=== PATIENT | male | born 1945 | race Caucasian/White ===

== ENCOUNTER → 2017-06-09 08:00 | Outpatient (CLI) | payer MEDICARE ==
[~2017-06-09] VITALS: Ht 180.3 cm; Wt 88.2 kg
--- NOTE | ~2017-06-09 | HEMODYNAMI ---
PATIENT:AKIL HYDE MEDICAL RECORD: [id number] : 41 LOCATION:DBreanaCAT ADMISSION DATE: 06/09/17 Generatedon:06/09/201710:56 Patient name: AKIL HYDE Patient #: [id number] SSN: D OB: 1945 Date of study: 06/09/2017 Page: Of Hemodynamic Procedure Report Patient Data Patient Demographics Procedure consent was obtained First Name: AKIL Gender: Male Last Name: MARY ELLEN : 1945 Middle Initial: TRINA Age: 72 year(s) Patient #: [id number] Race: Unknown Additional ID: [id number] Contact details [address]: [address] [place] [address] State: [place] City: [place] Zip code: [address] Past Medical History Allergies: No known allergies Admission Admission Data Admission Date: 06/09/2017 Admission Time: 8:00 Admit Source: Other Height (in.): 71 BSA: 2.08 (m2) Height (cm.): 180.34 BMI: 27.11 (kg/m2) Weight (lbs.): 194.4 Weight (kg.): 88.18 Lab Results Lab Result Date: 06/09/2017 Lab Result Time: 8:45 Biochemistry Name Units Result Min Max BUN mg/dl 20 --(----)*- 7 18 Creatinine mg/dl 1.4 --(----)*- 0.6 1.3 CBC Name Units Result Min Max Hematocrit % 34.8 *-(----)-- 42 54 Hemoglobin g/dl 10.9 *-(----)-- 13.5 17.5 Procedure Procedure Types Cath Procedure Diagnostic Procedure [facility] w/Coronaries PCI Procedure Coronary Stent Coronary Stent Initial Miscellaneous Procedures Moderate Sedation up to 30 minutes Procedure Description Procedure Date Procedure Date: 06/09/2017 Procedure Start Time: 10:40 Procedure End Time: 10:56 Procedure Staff Name Function Laci Lambert MD Performing Physician Annika More RT Monitor Yasir Roberts RT Scrub Judy Oviedo RN Nurse Procedure Data Cath Procedure Fluoroscopy Diagnostic fluoroscopy Total fluoroscopy Time: 3.6 time: 3.6 min min Diagnostic fluoroscopy Total fluoroscopy dose: 245 dose: 245 mGy mGy Contrast Material Contrast Material Type Amount (ml) Isovue 300 77 Entry Location Entry Primary Successful Side Size Upsize Upsize Entry Closure Wright ccessful Closure Location (Fr) 1 (Fr) 2 (Fr) Remarks Device Remarks Radial Right 6 Fr Mechanical artery Short Compression Estimated blood loss: 10 ml Diagnostic catheters Device Type Used For End Catheter Placement Diagnostic Terumo 5Fr LV Angiography [place] 110cm catheter Diagnostic Terumo 5Fr Right Coronary [place] 110cm catheter Angiography Procedure Complications No complications Procedure Medications Medication Administration Route Dosage Oxygen NC 2 l/min Lidocaine 2% added to field 20 Heparin Flush Bag added to field 2 bags (1000units/500ml NS) 0.9% NaCl I.V. 100 ml/hr Versed I.V. 1 mg Fentanyl I.V. 50 mcg Radial Cocktail I.A. 1 syringe (Verapomil 2mg/Nitro 400mcg/Heparin 1500units) Versed I.V. 1 mg Fentanyl I.V. 50 mcg Heparin Bolus I.V. 4000 units Versed I.V. 1 mg Fentanyl I.V. 50 mcg Hemodynamics Rest BSA: 2.08 (m2) HGB: 10.9 (g/dl) O2 Consumption: Estimated: 231.96 (ml/min) O2 Co nsumption indexed: Estimated:111.52 (ml/min/m) Heart Rate: 61 (bpm) Snapshots Pre Cath Intra NCS Post Cath Vital Signs Time Heart Resp SPO2 etCO2 NIBP (mmHg) Rhythm Pain Sedation Rate (ipm) (%) (mmHg) Status Level (bpm) 10:15:07 67 16 95 0 142/85(121) NSR 0 (11) 10(A) , No pain 10:19:23 59 16 94 31.4 138/72(105) NSR 0 (11) 10(A) , No pain 10:23:39 63 15 96 29.2 137/78(93) NSR 0 (11) 10(A) , No pain 10:27:56 60 15 94 32.9 130/79(90) NSR 0 (11) 10(A) , No pain 10:32:10 65 16 94 34.1 129/71(96) NSR 0 (11) 10(A) , No pain 10:36:20 66 15 94 12.7 127/74(98) NSR 0 (11) 10(A) , No pain 10:40:27 68 15 96 32.2 121/77(92) NSR 0 (11) 9(A) , No pain 10:44:37 73 16 94 11.9 104/64(82) NSR 0 (11) 9(A) , No pain 10:48:45 71 15 94 12.7 113/67(83) NSR 0 (11) 9(A) , No pain 10:52:57 71 17 94 21.7 116/63(93) NSR 0 (11) 10(A) , No pain Medications Time Medication Route Dose Verified Delivered Reason Notes Effectiveness by by 10:28:08 Oxygen NC 2 l/min Laci Buffie used for Fausto Oviedo RN procedure 10:28:15 Lidocaine 2% added 20ml Laci Aguero for local to vial Fausto Lambert MD anesthetic field 10:28:21 Heparin Flush added 2 bags Laci Aguero used for Bag to Fausto Lambert MD procedure (1000units/500ml field NS) 10:28:29 0.9% NaCl I.V. 100 Laci Kim Per ml/hr Fausto Oviedo RN physician 10:34:18 Versed I.V. 1 mg Laci Kim for sedation Fausto Oviedo RN 10:34:24 Fentanyl I.V. 50 mcg Laci Kim for sedation Fausto Oviedo RN 10:41:07 Radial Cocktail I.A. 1 Laci Aguero for (Verapomil syringe Fausto Lambert MD vasodilation 2mg/Nitro 400mcg/Heparin 1500units) 10:41:25 Versed I.V. 1 mg Laci Aguero for sedation Fausto Lambert MD 10:41:29 Fentanyl I.V. 50 mcg Laci Aguero for sedation Fausto Lambert MD 10:45:52 Heparin Bolus I.V. 4000 Laci Kim for sedation verifie d units Fausto Oviedo RN with dr lambert 10:50:00 Versed I.V. 1 mg Laci Kim for sedation Tauth MD Oviedo RN 10:50:04 Fentanyl I.V. 50 mcg Laci Kim for sedation Fausto Oviedo RN Procedure Log Time Note 9:14:26 Informed consent obtained and on chart 9:14:35 Admit Source: Other 9:15:06 Diagnostic Cath status Elective 9:15:16 H&P Date Dictated: 06/08/2017 Within 30 days and on chart., H&P Addendum completed by physician on day of procedure. (MUST COMPLETE FOR ALL OUTPATIENTS). 9:17:47 Lab Result : BUN 20 mg/dl 9:17:47 Lab Result : Hematocrit 34.8 % 9:17:47 Lab Result : Hemoglobin 10.9 g/dl 9:17:47 Lab Result : Creatinine 1.4 mg/dl 9:18:08 Patient Height : 71 inches 9:18:14 Patient Weight : 194.4 lbs 10:02:35 Annika Counts RT(R) sent for patient. Start room use. 10:02:36 Time tracking: Regular hours 10:02:40 Plan of Care:Hemodynamics will remain stable., Cardiac rhythm will remain stable., Comfort level will be maintained., Respiratory function will remain adequate., Patient/ family verbilizes understanding of procedure., Procedure tolerated without complication., Recovers from procedure without complications.. 10:13:54 Patient received from Pre/Post Procedure Room to CCL 3 Alert and oriented. Tansferred to table in Supine position. 10:13:59 Warm blankets applied, and julian hugger turned on for patient comfort. 10:13:59 Correct patient and procedure confirmed by team. 10:13:59 ECG and BP/O2 sat monitors applied to patient. 10:14:01 Vital chart was started 10:20:22 Baseline sample Acquired. 10:20:27 Rhythm: sinus rhythm 10:20:29 Full Disclosure recording started 10:20:30 Pre-procedure instructions explained to patient. 10:20:30 Pre-op teaching completed and patient verbalized understanding. 10:20:32 Family in waiting room. 10:20:34 Patient NPO since Midnight. 10:20:42 Patient allergic to No known allergies 10:20:45 Is the patient allergic to Iodine/contrast media? No. 10:20:46 Is patient on blood thinner?Yes 10:20:49 ACC The patient was administered the following blood thiners within the last 24 hours: ACCAspirin, ACCPlavix 10:23:18 Patient diabetic? No. 10:23:23 Previous problem with sedation/anesthesia? No ? 10:23:24 Snore? Yes 10:23:27 Sleep apnea? Yes 10:23:28 Deviated septum? No 10:23:29 Opens mouth fully? Yes 10:23:30 Sticks out tongue? Yes 10:23:33 Airway obstruction? No ? 10:23:34 Dentures? No ? 10:23:39 Pre procedure: right dorsailis pedis pulse 2+ Normal; easily identifiable; not easily obliterated 10:23:43 Modified Martin's test Radial < 7 seconds 10:23:45 Patient pain scale 0/10 ?. 10:23:49 IV patent on arrival in left hand with 0.9% NaCl at [facility]. 10:23:52 Lab results completed and on chart. 10:23:55 Right Radial & Right Groin area was prepped with chlora-prep and draped in sterile fashion 10:23:55 Alarms reviewed by R. N. 10:23:56 Sharps counted by scrub and verified by R.N. 10:28:08 Oxygen 2 l/min NC was administered by Judy Oviedo RN; used for procedure; 10:28:15 Lidocaine 2% 20ml vial added to field was administered by Laci Lambert MD; for local anesthetic; 10:28:18 Use device set Radial Dx 10:28:19 Acist Syringe opened to sterile field. 10:28:20 Medline Cath Pack opened to sterile field. 10:28:20 Bag Decanter opened to sterile field. 10:28:21 Heparin Flush Bag (1000units/500ml NS) 2 bags added to field was administered by Laci Lambert MD; used for procedure; 10:28:21 Terumo 6Fr Slender Glidesheath opened to sterile field. 10:28:21 St Aaron 260cm J .035 wire opened to sterile field. 10:28:22 Acist Hand Control opened to sterile field. 10:28:22 Acist Manifold opened to sterile field. 10:28:23 Tegaderm 4 x 4 opened to sterile field. 10:28:23 MBrace Wrist Support opened to sterile field. 10:28:29 0.9% NaCl 100 ml/hr I.V. was administered by Judy Oviedo RN; Per physician; 10:30:58 Zero performed for pressure channel P1 10:31:03 Zero performed for pressure channel P1 10:33:11 Final Timeout: patient, procedure, and site verified with staff and physician. All members of the team are in agreement. 10:33:14 Right Radial site verified by team. 10:33:18 Physical assessment completed. ASA score P 2 - A patient with mild systemic disease as per Laci Lambert MD. 10:33:25 Sedation plan: IV Moderate Sedation Medication:Versed, Fentanyl 10:34:18 Versed 1 mg I.V. was administered by Judy Oviedo RN; for sedation; 10:34:24 Fentanyl 50 mcg I.V. was administered by Judy Oviedo RN; for sedation; 10:40:21 Procedure started. 10:40:27 Local anesthetic to right radial artery with Lidocaine 2% by Laci Lambert MD.INITIAL ACCESS ONLY 10:40:55 A 6 Fr Short sheath was inserted into the Right Radial artery 10:41:07 Radial Cocktail (Verapomil 2mg/Nitro 400mcg/Heparin 1500units) 1 syringe I.A. was administered by Laci Lambert MD; for vasodilation; 10::25 Versed 1 mg I.V. was administered by Laci Lambert MD; for sedation; 10:41:27 A Diagnostic Terumo 5Fr [place] 110cm catheter was advanced over the wire and used for LV Angiography. 10:41:29 Fentanyl 50 mcg I.V. was administered by Laci Lambert MD; for sedation; 10:42:02 LV gram done using RODRIGEZ 10:42:04 Injector settings: Ml/sec: 5, Volume: 15, 10:42:13 EF : 45 % 10:42:27 A Diagnostic Terumo 5Fr [place] 110cm catheter was advanced over the wire and used for Right Coronary Angiography. 10:42:52 Catheter removed. 10:42:58 Cordis 6FR XBLAD 3.5 guide catheter opened to sterile field. 10:43:18 6 Fr XBLAD 3.5 guide catheter was inserted over the wire 10:43:42 LCA angiography performed. 10:44:55 Catheter removed. 10:45:52 Heparin Bolus 4000 units I.V. was administered by Judy Oviedo RN; for sedation; verified with dr lambert 10:46:45 Graphix wire advanced. 10:49:35 Inflation Number: 1 A [place] RX 2.25 x 26 stent was prepped and advanced across the Dist LAD. The stent was deployed at 15 GRACE for 0:09 (min:sec). 10:49:46 Inflation number: 2 The stent balloon was then re-inflated across the Dist LAD to 21 GRACE for 0:04 (min:sec). 10:50:00 Versed 1 mg I.V. was administered by Judy Oviedo RN; for sedation; 10:50:02 Inflation number: 3 The stent balloon was then re-inflated across the Dist LAD to 21 GRACE for 0:10 (min:sec). 10:50:04 Fentanyl 50 mcg I.V. was administered by Judy Oviedo RN; for sedation; 10:50:31 Inflation number: 4 The stent balloon was then re-inflated across the Dist LAD to 23 GRACE for 0:10 (min:sec). 10:50:54 Stent catheter was removed intact over wire. 10:50:55 Wire removed. 10:50:55 Guide catheter removed. 10:51:07 Terumo TR Band Standard opened to sterile field. 10:51:13 Sheath removed intact; hemostasis achieved with Mechanical Compression to the Right Radial artery. 10:51:15 Procedure ended.(Physican Out) 10:51:32 Fluoroscopy time 03.60 minutes. 10:51:34 Fluoroscopy dose: 245 mGy 10:51:34 Flurop Dose total: 245 10:51:38 Contrast amount:Isovue 300 77ml. 10:51:40 Sharps counted by scrub and verified by R.N. 10:51:43 TR band inflated with 10cc of air. 10:51:44 Insertion/operative site no bleeding no hematoma. 10:51:50 Post right radial artery:stable, clean and dry 10:51:52 Post Procedure Pulses reassessed and unchanged 10:52:00 Post-procedure physical assessment completed. ASA score P 2 - A patient with mild systemic disease as per Laci Lambert MD. 10:52:05 Post procedure rhythm: unchanged. 10:52:09 Estimated blood loss: 10 ml 10:52:11 Post procedure instruction explained to patient.Patient verbalizes understanding. 10:52:11 Patient needs reinforcement of post procedure teaching. 10:52:24 Procedure type changed to Cath procedure, Diagnostic procedure, LHC, LHC w/Coronaries, PCI procedure, Coronary Stent, Coronary Stent Initial, Miscellaneous Procedures, Moderate Sedation up to 30 minutes 10:52:30 Procedure Complication : No complications 10:52:33 See physician's report for complete and final results. 10:53:09 Lovejoy Sci PT Graphix J 300cm 0.014 guide wire opened to sterile field. 10:53:48 Procedure and supply charges have been captured, reviewed, submitted and are correct. 10:56:09 Vital chart was stopped 10:56:11 Report given to Pre/Post Procedure Room. 10:56:14 Patient transfered to Pre/Post Procedure Room with Stretcher. 10:56:23 Procedure ended. 10:56:23 Full Disclosure recording stopped 10:56:30 End room use (Document Last) Intervention Summary Intervention Notes Time ActionType Lesion and Equipment Action# Pressure Duration Attributes Used 10:49:35 Place stent Dist LAD [place] RX 1 15 00:09 2.25 x 26 stent 10:49:46 Reinflate Dist LAD Charlie RX 2 21 00:04 stent 2.25 x 26 balloon stent 10:50:02 Reinflate Dist LAD [place] RX 3 21 00:10 stent 2.25 x 26 balloon stent 10:50:31 Reinflate Dist LAD Charlie RX 4 23 00:10 stent 2.25 x 26 balloon stent Device Usage Item Name Manufacture Quantity Catalog Number Hospital Part Current Mini mal Lot# / Charge Number Stock Stock Serial# Code Acist Acist 1 [id number] [id number] 545103 [id number] 20 Syringe Medical Systems Inc Medline Cardinal 1 [id number] 066235 06411 325906 5 Cath Primadesk Health Bag Microtek 1 2001S 618968 34048 816192 5 ZeroPoint Clean Tech. Terumo 6Fr Terumo 1 [id number] 016914 193649 910402 [address] Aaron 1 517519 146694 635768 511221 30 260cm J .035 wire Acist Hand Acist 1 07248 783789 908889 652074 5 MaxVision Systems Inc Acist Acist 1 88462 389236 667033 444394 5 Inventys Thermal Technologies Systems JumpSeller Tegaderm 4 3M 1 1626W 992428 730643 791431 5 x 4 MBrace Advanced 1 140-0250-00 385319 48833 794048 5 Wrist Vascular Support Dynamics Diagnostic Terumo 1 00-3406 000072 231263 650052 5 Terumo 5Fr [place] 110cm catheter Cordis 6FR Cardinal 1 [id number] 627274 443180 049028 10 XBLAD 3.5 Health guide catheter [place] RX Medtronic 1 [id number] 064769 1277792 271777 5 [id number] 2.25 x 26 stent Terumo TR Terumo 1 [id number] 622605 818429 212003 40 Band Standard Lovejoy Sci Lovejoy 1 [id number] 704185 318421 989501 5 PT [place] 300cm 0.014 guide wire Signature Audit [place] Stage Time Signature Unsigned Intra-Procedure 06/09/2017 Annika 10:56:41 AM Counts RT(R) Signatures Monitor : Annika Signature : Counts RT Date : Time : [place] [id number] [place] [address]
[~2017-06-09 08:00] MED LIST: BRILINTA90 MG; COREG 3.1253.125 MG PO; DICLOFENAC SODI50 MG PO; DYAZIDE 37.5/251 CAP PO; ECOTRIN81 MG PO; FISH OIL 1,0001 CA1 PO; GARLIC1 CAP PO; MULTI-DAY VITAM1 TAB PO; NEXIUM20 MG PO; PLAVIX75 MG PO; POTASSIUM99 M1 PO; PRAVACHOL20 MG PO; PRILOSEC20 MG PO; SYNTHROID100 MCG PO
[2017-06-09 08:43] VITALS: BP 135/69; Ht 180.3 cm; Wt 88.2 kg
[2017-06-09 08:54] LABS: BASOPHILS 0.2 % (0-2); EOSINOPHILS 3.1 % (0-7); HEMATOCRIT 34.8 % (42.0-54.0); HEMOGLOBIN 10.9 g/dL (13.5-17.5); IMMATURE GRANULOCYTES 0.2 % (0-5); LYMPHOCYTES 18.7 % (15-50); MCH 24.2 pg (26.0-34.0); MCHC 31.3 g/dL (31.0-37.0); MCV 77.2 fL (80.0-100.0); MEAN PLATELET VOLUME 10.1 fL (7.4-10.4); NEUTROPHILS 68.8 % (40-80); PLATELET COUNT 175 10x3/uL (130-400); RBC 4.51 10x6/uL (4.20-6.10); RDW 16.1 % (11.5-14.5); WBC 4.8 10x3/uL (4.8-10.8)
[2017-06-09 09:08] LABS: ANION GAP 16.8 mmol/L (8-16); CALCIUM 8.5 mg/dL (8.5-10.1); CARBON DIOXIDE 18.5 mmol/L (21.0-32.0); CREATININE - SERUM 1.4 mg/dL (0.6-1.3); POTASSIUM - SERUM 4.3 mmol/L (3.5-5.1)
--- NOTE | 2017-06-09 11:20 | NUR ---
C/O NAUSEA AND PAIN IN HIS CHEST THAT IS A 5/10. ZOFRAN 4MG AND MORPHINE 2MG GIVEN PER ORDERS. EKG DONE AND GIVEN TO DR. COOK. INTEGRELIN BOLUS OF 15.8MG GIVEN PER ORDERS. WILL CONTINUE TO MONITOR CLOSELY.
--- NOTE | 2017-06-09 11:50 | NUR ---
2L NC, NO RESP DISTRESS. RIGHT WRIST TR BAND CDI, NO BLEEDING OR HEMATOMA NOTED. NO C/O NAUSEA OR CHEST PAIN AT THIS TIME. VSS. WILL CONTINUE TO MONITOR.
--- NOTE | 2017-06-09 12:50 | NUR ---
SANDWICH TRAY AND DRINK GIVEN, NO C/O NAUSEA OR PAIN. VSS. RIGHT WRIST TR BAND CDI, NO BLEEDING OR HEMATOMA NOTED. CALL LIGHT WITHIN REACH.
--- NOTE | 2017-06-09 13:50 | NUR ---
RESTING QUIETLY WITH EYES CLOSED. VSS. RIGHT WRIST TR BAND CDI, NO BLEEDING OR HEMATOMA NOTED. 2L NC, NO RESP DISTRESS. WILL CONTINUE TO MONITOR.
--- NOTE | 2017-06-09 14:05 | NUR ---
3CC OF AIR REMOVED FROM TR BAND, NO BLEEDING NOTED.
--- NOTE | 2017-06-09 14:14 | OP ---
PATIENT NAME: AKIL HYDE MEDICAL RECORD: [id number] :41 LOCATION:D.CAT ADMISSION DATE: SURGEON: MAGALY COOK MD DATE OF OPERATION: 06/09/2017 PROCEDURES: 1. PTCA stent LAD. 2. Left heart catheterization. 3. Selective coronary angiography. 4. Left ventriculogram. INDICATION: Angina and coronary artery disease. PROCEDURE IN DETAIL: After informed consent was obtained and after detailed explanation of risks, benefits as well as alternative therapies, the patient elected to proceed with angiogram and angioplasty. The right femoral area was prepped and draped in normal sterile fashion. The right femoral artery was cannulated via modified Seldinger technique with placement of 6-Japanese sheath. All catheters exchanged through this sheath. FINDINGS: The left ventriculogram was performed in the standard 30-degree RODRIGEZ view reveals good cardiac wall motion throughout all segments. Overall ejection fraction estimated 60%. SELECTIVE CORONARY ANGIOGRAPHY: 1. Left main showed no significant angiographic disease. 2. Left anterior descending has previously placed stent. This is patent; however, there is an 80% stenosis after the previously placed stent. 3. Left circumflex shows moderate irregularities, but no flow-limiting stenosis. 4. Right coronary has moderate irregularities, but no flow-limiting stenosis. PTCA STENT OF THE LAD: The stent used was a 2.25 x 26 mm [place]. Result was 0% residual stenosis. OVERALL IMPRESSION: Successful percutaneous transluminal coronary angioplasty stent of the left anterior descending from 80% initial stenosis to 0% residual. TRANSINT:[id number] Voice Confirmation ID: [id number] DOCUMENT ID: [id number] MAGALY COOK MD at 1414 CC: [id number] DICTATION DATE: 06/09/17 1054 ROLLER SKATER: 06/09/17 1308 [facility] [address] [place] [address]
--- NOTE | 2017-06-09 14:22 | NUR ---
3CC OF AIR REMOVED FROM TR BAND, NO BLEEDING NOTED.
--- NOTE | 2017-06-09 14:45 | NUR ---
3CC OF AIR REMOVED FROM TR BAND, NO BLEEDING NOTED. LEFT FA PIV D/C'D WITH CATHETER INTACT, BAND AID TO SITE. UP TO BEDSIDE TO GET DRESSED.
--- NOTE | 2017-06-09 14:52 | NUR ---
REMAINING AIR REMOVED FROM TR BAND, DRESSING TO SITE. DISCHARGE INSTRUCTIONS GIVEN, VERBALIZED UNDERSTANDING.
--- NOTE | 2017-06-09 15:05 | NUR ---
TAKEN OUT VIA WHEELCHAIR BY CATH ENTRY LEVEL ACCOUNT MANAGER. LEFT FACILITY WITH FAMILY MEMBER AND ALL PERSONAL BELONGINGS.
== END | disposition home or self-care (01) ==
LOC: D.CATH 08:00
PROVIDERS: Internal Medicine Interventional Cardiology
DX: I25.119 Atherosclerotic heart disease of native coronary artery with unspecified angina pectoris (principal); E78.5 Hyperlipidemia, unspecified; Z01.812 Encounter for preprocedural laboratory examination
CPT/HCPCS: 93458; C9600

== ENCOUNTER 2017-06-26 15:39 | Observation (INO) | payer MEDICARE ==
[~2017-06-26] VITALS: Ht 180.3 cm; Wt 86.5 kg
[2017-06-26 16:28] LABS: BASOPHILS 0.3 % (0-2); EOSINOPHILS 1.8 % (0-7); HEMATOCRIT 34.4 % (42.0-54.0); HEMOGLOBIN 10.6 g/dL (13.5-17.5); IMMATURE GRANULOCYTES 0.4 % (0-5); LYMPHOCYTES 16.3 % (15-50); MCH 23.9 pg (26.0-34.0); MCHC 30.8 g/dL (31.0-37.0); MCV 77.7 fL (80.0-100.0); MEAN PLATELET VOLUME 9.2 fL (7.4-10.4); NEUTROPHILS 75.2 % (40-80); PLATELET COUNT 174 10x3/uL (130-400); RBC 4.43 10x6/uL (4.20-6.10); RDW 16.4 % (11.5-14.5); WBC 7.1 10x3/uL (4.8-10.8)
[2017-06-26 16:44] LABS: ALBUMIN 3.8 g/dL (3.4-5.0); ALKALINE PHOSPHATASE 71 U/L (46-116); ALT (SGPT) 20 U/L (10-68); BILIRUBIN - TOTAL 0.25 mg/dL (0.2-1.3); CALC OSMOLALITY 281 mosm/kg (275-300); CALCIUM 8.7 mg/dL (8.5-10.1); CARBON DIOXIDE 27.1 mmol/L (21.0-32.0); CHLORIDE - SERUM 106 mmol/L (98-107); CREATININE - SERUM 1.6 mg/dL (0.6-1.3); GLUCOSE 100 mg/dL (74-106); POTASSIUM - SERUM 3.8 mmol/L (3.5-5.1); PROTEIN - SERUM 6.7 g/dL (6.4-8.2); SODIUM 139 mmol/L (136-145); UREA NITROGEN 24 mg/dL (7-18); eGFR NON AFRICAN AMERICAN 45 mL/min (90-120)
[2017-06-26 16:54] LABS: CHOL - HDL RATIO 2.2 ratio (2.3-4.9); CHOLESTEROL, TOTAL 100 mg/dL (0-200); CKMB 6.3 U/L (0.0-3.6); CREATINE KINASE 256 UL (21-232); HDL CHOLESTEROL 45 mg/dL (32-96); LDL CHOLESTEROL 39 mg/dL (0-100); LDL-HDL RATIO 0.9 ratio (1.5-3.5); TRIGLYCERIDE 81 mg/dL (30-200); TROPONIN-I 0.034 ng/mL (0.000-0.060)
[2017-06-26 20:54] LABS: CKMB 5.1 U/L (0.0-3.6); CREATINE KINASE 226 UL (21-232); TROPONIN-I 0.042 ng/mL (0.000-0.060)
--- NOTE | 2017-06-27 00:37 | NUR ---
PATIENT ARRIVED FROM THE ER VIA WHEELCHAIR, RESPIRATIONS EVEN AND UNLABORED. ALERT AND ORIENTED, CALL LIGHT INSTRUCTIONS. DENIES PAIN OR NEEDS AT THIS TIME. CALL LIGHT PLACED IN REACH, WILL CONTINUE TO MONITOR.
[2017-06-27 00:58] VITALS: Ht 180.3 cm; Wt 86.5 kg
[2017-06-27 02:14] VITALS: BP 112/60
--- NOTE | 2017-06-27 02:40 | NUR ---
PT RESTING WELL IN BED, RESPIRATIONS EVEN AND UNLABORED. SINUS ON TELEMETRY. CALL LIGHT IN REACH, WILL CONTINUE PLAN OF CARE.
[2017-06-27 05:55] VITALS: BP 110/62
--- NOTE | 2017-06-27 07:30 | NUR ---
REPORT RECEIVED. RR EVEN AND UNLABORED, PT DENIES NEEDS AT THIS TIME. PT DENIES CHEST PAIN. WILL CTM.
[2017-06-27 09:48] VITALS: BP 122/72
--- NOTE | 2017-06-27 11:15 | NUR ---
PT DISCHARGED. D/C INSTRUCTIONS PROVIDED TO PT AND FAMILY. VERBALIZED UNDERSTANDING. IV CATHETER REMOVED WITH CATHETER TIP INTACT. TELE REMOVED AND RETURNED TO POT PRESS OPERATOR. DENIES FURTHER QUESTIONS AND NEEDS. WILL BE GOING HOME WITH IN PERSONAL VEHICLE.
--- NOTE | 2017-07-04 12:15 | HP ---
PATIENT: AKIL HYDE MEDICAL RECORD: [id number] ACCOUNT: [id number] LOCATION:D. D.2139 : 41 ADMISSION DATE: 06/26/17 HISTORY AND PHYSICAL EXAMINATION ADMITTING DIAGNOSES: 1. Angina. 2. Coronary artery disease. 3. Previous percutaneous transluminal coronary angioplasty stent. 4. Hypertension. 5. Hyperlipidemia. HISTORY OF PRESENT ILLNESS: This is a gentleman who presents with anginal symptomatology, status post PTCA stent of LAD 06/09/2017. He was pain free after that. Today, he began having shortness of breath. This was followed by anginal chest discomfort. He has had multiple hours of the chest discomfort. His troponin is trending towards positive. CK-MB is positive. He has continued to have episodes of chest discomfort. PHYSICAL EXAMINATION: GENERAL APPEARANCE: Well-nourished, well-developed, appears stated age. Level of distress, comfortable. PSYCHIATRIC: Mental status, alert, normal affect. Orientation, oriented to time, place and person. EYES: Lids and conjunctiva, noninjected. No discharge, no pallor. ENT: Lips, teeth, gums, normal dentition. Oropharynx, no cyanosis, no pallor. NECK: Carotid arteries, bilateral normal upstroke, no bruits, no thrills. JUGULAR VEINS: No jugular venous pressure or distention. CERVICAL LYMPH NODES: Nontender, nonenlarged. THYROID: Not enlarged. Nontender. No nodules. LUNGS: Respiratory effort, unlabored. CHEST: Normal curvature. No thoracic deformity. No chest wall tenderness. Percussion, resonant. Auscultation, clear. No wheezes, no rales, no rhonchi. CARDIOVASCULAR: Precordial exam, nondisplaced. No heaves or pericardial thrills. Rate and rhythm, regular. Heart sounds, normal S1, normal S2. No S3, no gallop, no rub. Systolic murmur, not heard. Diastolic murmur, not heard. EXTREMITIES: No cyanosis, no edema. Peripheral pulses, full and equal in all extremities, except as noted. No bruits appreciated. ABDOMEN: Soft, nondistended. Normal aorta. No bruit. Nontender. No masses. Liver, nontender, no hepatomegaly. Spleen, nontender, no splenomegaly. MUSCULOSKELETAL: No joint tenderness. No joint swelling. No erythema. NEUROLOGICAL: Normal gait, normal strength, normal tone. SKIN: Warm and dry. REVIEW OF SYSTEMS: The patient reports easy bruising but reports no swollen glands. The patient reports no fever, no night sweats, no significant weight gain, no significant weight loss. No significant exercise tolerance. The patient reports no dry eyes, no irritation, no vision change. Patient reports no difficulty hearing and no ear pain. Patient reports no frequent nose bleeds or nose and sinus problems. Patient reports on arm pain on exertion. No shortness of breath while lying down. No history of heart murmur. Patient reports no cough, no wheezing or coughing up blood. Patient reports no abdominal pain, no vomiting. Normal appetite. No diarrhea and not vomiting blood. No nausea and no constipation. Patient reports no incontinence. No difficulty urinating. No hematuria. No increased frequency. Patient reports HISTORY AND PHYSICAL [id number] AKIL HYDE no muscle aches. No weakness, no arthralgias, no back pain. No swelling of the extremities. Patient reports no abnormal mole, no jaundice, no rashes. Reports no loss of consciousness. No weakness and no numbness. No seizures, dizziness, or headaches. The patient reports no depression, no sleep disturbance, feeling safe in a relationship and no alcohol abuse. Patient reports on fatigue. Reports no runny nose or sinus pressure. No itching, no hives, and no frequent sneezing. OVERALL IMPRESSION: Chest discomfort compatible with angina. His EKG is with nonspecific ST-T abnormalities. His continued chest pain and elevated troponin are concerning. We will watch him overnight, get a repeat troponin in the morning. If this does elevate further, we would proceed with repeat coronary angiography. TRANSINT:[id number] Voice Confirmation ID: [id number] DOCUMENT ID: [id number] MAGALY COOK MD at 1215 CC: [id number] DICTATION DATE: 06/26/172309 MANAGER POKER: 06/26/17 2342 DIS IN 06/27/17 [place] [id number]
--- NOTE | 2017-07-04 12:15 | DS ---
PATIENT:AKIL HYDE :41 MEDICAL RECORD: [id number] DISCHARGE SUMMARY ADMISSION DATE: 06/26/17 DISCHARGE DATE: 06/27/17 DISCHARGE DIAGNOSES: 1. Chest pain. 2. Coronary artery disease. 3. Previous percutaneous transluminal coronary angioplasty stent. 4. Hypertension. 5. Hyperlipidemia. HOSPITAL COURSE: Mr. Hyde presents with chest pain, somewhat atypical somewhat typical. He has a past history of coronary artery disease, PTCA stent 3 weeks ago. No other disease was present. His troponin was normal. His chest pain abated. EKG was unchanged and normal. He was discharged home with no change in his medications. Follow up with [facility]. He will call immediately if he has recurrent chest pain. TRANSINT:[id number] Voice Confirmation ID: [id number] DOCUMENT ID: [id number] MAGALY COOK MD at 1215 CC: [id number] DICTATION DATE: 06/27/17923 HEALTH UNDERWRITER: 06/27/17 1424 DIS IN 06/27/17 [place] [address] [place] [address]
== END 2017-06-27 11:38 | disposition home or self-care (01) ==
LOC: D.ER 15:39 → D.M2 23:43 → OBSVTIME 23:43 → D.M2 23:43
PROVIDERS: Emergency Medicine; ADMIT Internal Medicine Interventional Cardiology
DX: R07.89 Other chest pain (principal); I25.10 Atherosclerotic heart disease of native coronary artery without angina pectoris; Z95.5 Presence of coronary angioplasty implant and graft; I10 Essential (primary) hypertension; E78.5 Hyperlipidemia, unspecified

== ENCOUNTER → 2017-08-04 10:42 | Outpatient (CLI) | payer OTHER ==
[2017-06-27 00:58] VITALS: BMI 27.2
== END | disposition home or self-care (01) ==
LOC: D.CT 10:42
DX: R31.9 Hematuria, unspecified (principal); R10.9 Unspecified abdominal pain

== ENCOUNTER 2017-10-31 17:00 | Inpatient (IN) | payer OTHER ==
[~2017-10-31] VITALS: Ht 180.3 cm; Wt 86.6 kg
--- NOTE | ~2017-10-31 | CN ---
PATIENT NAME:AKIL HYDE MEDICAL RECORD: [id number] : 41 LOCATION:D. D.2110 ADMIT DATE: 10/31/17 ACCOUNT: [id number] CONSULTING PHYSICIAN: MAGALY COOK MD REFERRING PHYSICIAN: AMIRAH MARTELL MD DATE OF CONSULTATION: 11/01/2017 CARDIOLOGY CONSULT DIAGNOSES: 1. Infected kidney stone. 2. Coronary artery disease. 3. Previous percutaneous transluminal coronary angioplasty stent. 4. Hypertension. 5. Hyperlipidemia. 6. Mild cardiomyopathy. HISTORY OF PRESENT ILLNESS: Mr. Hyde is well known to us. Last cardiac intervention was in 06/09/2017 with a drug-eluting stent. He has not had any cardiac problems. He has a mild cardiomyopathy with ejection fraction in the 40% to 45% range. He has not had any heart failure symptomatology. He is now admitted with an infected kidney stone. He possibly needs operative repair for this and they are enquiring about the dual antiplatelet therapy. REVIEW OF SYSTEMS: The patient reports easy bruising but reports no swollen glands. The patient reports no fever, no night sweats, no significant weight gain, no significant weight loss. No significant exercise tolerance. The patient reports no dry eyes, no irritation, no vision change. Patient reports no difficulty hearing and no ear pain. Patient reports no frequent nose bleeds or nose and sinus problems. Patient reports on arm pain on exertion. No shortness of breath while lying down. No history of heart murmur. Patient reports no cough, no wheezing or coughing up blood. Patient reports no abdominal pain, no vomiting. Normal appetite. No diarrhea and not vomiting blood. No nausea and no constipation. Patient reports no incontinence. No difficulty urinating. No hematuria. No increased frequency. Patient reports no muscle aches. No weakness, no arthralgias, no back pain. No swelling of the extremities. Patient reports no abnormal mole, no jaundice, no rashes. Reports no loss of consciousness. No weakness and no numbness. No seizures, dizziness, or headaches. The patient reports no depression, no sleep disturbance, feeling safe in a relationship and no alcohol abuse. Patient reports on fatigue. Reports no runny nose or sinus pressure. No itching, no hives, and no frequent sneezing. PHYSICAL EXAMINATION: GENERAL APPEARANCE: Well-nourished, well-developed, appears stated age. Level of distress, comfortable. PSYCHIATRIC: Mental status, alert, normal affect. Orientation, oriented to time, place and person. EYES: Lids and conjunctiva, noninjected. No discharge, no pallor. ENT: Lips, teeth, gums, normal dentition. Oropharynx, no cyanosis, no pallor. NECK: Carotid arteries, bilateral normal upstroke, no bruits, no thrills. JUGULAR VEINS: No jugular venous pressure or distention. CERVICAL LYMPH NODES: Nontender, nonenlarged. THYROID: Not enlarged. Nontender. No nodules. LUNGS: Respiratory effort, unlabored. CONSULT REPORT [id number] AKIL HYDE CHEST: Normal curvature. No thoracic deformity. No chest wall tenderness. Percussion, resonant. Auscultation, clear. No wheezes, no rales, no rhonchi. CARDIOVASCULAR: Precordial exam, nondisplaced. No heaves or pericardial thrills. Rate and rhythm, regular. Heart sounds, normal S1, normal S2. No S3, no gallop, no rub. Systolic murmur, not heard. Diastolic murmur, not heard. EXTREMITIES: No cyanosis, no edema. Peripheral pulses, full and equal in all extremities, except as noted. No bruits appreciated. ABDOMEN: Soft, nondistended. Normal aorta. No bruit. Nontender. No masses. Liver, nontender, no hepatomegaly. Spleen, nontender, no splenomegaly. MUSCULOSKELETAL: No joint tenderness. No joint swelling. No erythema. NEUROLOGICAL: Normal gait, normal strength, normal tone. SKIN: Warm and dry. OVERALL IMPRESSION: It has been 5 months since his last stent. He will be safe to hold the aspirin and Plavix and just leave him off the Plavix at this time, restarting the aspirin after this hospitalization. He is stable from a cardiac standpoint, no other cardiac workup or treatment is necessary at this time. TRANSINT:[id number] Voice Confirmation ID: [id number] DOCUMENT ID: [id number] MAGALY COOK MD at 1056 CC: [id number] DICTATION DATE: 11/01/17 0854 BOILERMAKER FITTER: 11/01/17 1050 DIS IN 11/02/17 [place] [address]
--- NOTE | ~2017-10-31 | OP ---
PATIENT NAME: AKIL HYDE MEDICAL RECORD: [id number] :41 LOCATION:D.M2 D.0 ADMISSION DATE:10/31/17 SURGEON: DAVID MORGAN MD DATE OF OPERATION: 11/02/2017 SURGEON: David Morgan MD ANESTHESIA: General anesthesia by Lonnie Umaña CRNA. PREOPERATIVE DIAGNOSIS: Left distal ureteral stone, 8 mm. PROCEDURES: Cystoscopy, left retrograde pyelogram, left ureteroscopy and stone extraction, left ureteral stent insertion 6-Mauritian x 26 cm with string attached. FINDINGS: Radiolucent left distal ureteral stone, 8 mm. SPECIMENS: Left ureteral stone. COMPLICATIONS: None. ESTIMATED BLOOD LOSS: None. CLINICAL HISTORY: This is a 72-year-old male with a previous history of kidney stones. For the past 5 months, he has had left flank pain from a known left distal ureteral stone. The stone has not been treated because he had an NV in June 2017 and he had coronary artery stents placed. This was done by Dr. Lambert. He has been on Plavix up until now. He was admitted to hospital with increasing left flank pain and a possible UTI. So far, I do not see any positive urine culture on the patient. Nevertheless, in anticipation of having the procedure done for his ureteral stone removal, he has been off Plavix and he has been temporized with Lovenox injections. He comes today to have the stone removed. He is allergic to codeine. We gave him Ancef IV acquisition consultant to the OR. DESCRIPTION OF PROCEDURE: The patient was given induction of general anesthesia. He was placed in the dorsal lithotomy position and prepped and draped. A 21-Mauritian cystoscope with 30-degree lens was used for visualization. Penile urethra was normal with no strictures. Prostatic urethra shows some bladder neck obstruction. The bladder is trabeculated. There are single ureteral orifices on each side. No bladder tumors were seen. On fluoroscopy, we could not see the stone as a radiodensity. Therefore, the left ureteral orifice was intubated using a 5-Mauritian open-ended ureteral catheter. Diluted contrast was injected for retrograde pyelogram. This showed the stone as a filling defect in the distal ureter. We were then able to place a Sensor wire up into the renal pelvis through the lumen of the ureteral catheter. The ureteral catheter was then removed leaving the wire in place. Over the wire, we inserted an UroMax 21-Mauritian x 4 cm ureteral dilation balloon. The left ureteral orifice was dilated up to 10 atmospheres of pressure using the balloon. The balloon was then deflated completely and removed entirely. The wire was left in while the cystoscope was removed. We then went up with the rigid ureteroscope. The stone was identified. A 4-wire 0-tip basket was placed around the stone and the stone was completely extracted. It will be sent to pathology for stone analysis. I then put the ureteroscope back in and visualized the ureter up to the mid ureteral level. No other stones were seen. The ureteroscope was then removed. The wire was backloaded onto the cystoscope. Over the wire, we inserted the 6-Mauritian x 26 cm ureteral stent. Once the stent OPERATIVE REPORT [id number] AKIL HYDE was in correct position, the wire was entirely withdrawn. This allowed the proximal end to coil within the renal pelvis. The distal end was pushed into the bladder using the pusher. The bladder was then emptied through the cystoscope sheath and then the scope was removed. The string from the distal end of the stent hangs out of the penile urethra. This was tied to itself and cut shorter. The patient can go home today. He was given a script for Republic and Flomax. I will see him in followup next week in the clinic to remove the stent by pulling on the string. TRANSINT:[id number] Voice Confirmation ID: [id number] DOCUMENT ID: [id number] DAVID MORGAN MD at 0809 CC: [id number] DICTATION DATE: 11/02/17 1300 MICROCHIP SPECIALIST: 11/02/17 1319 DIS IN 11/02/17 [place] [id number] [place] [id number]
[2017-10-31] MEDS ORDERED: ULTRAM50 MG PO (18:00)
[2017-10-31 18:01] VITALS: BP 109/73; BMI 26.7
[2017-10-31 20:00] VITALS: BP 131/72
[2017-11-01] VITALS: BP 119/73
[2017-11-01 04:00] VITALS: BP 128/70
[2017-11-01 08:00] VITALS: BP 119/85
[2017-11-01 12:00] VITALS: BP 133/83
[2017-11-01 13:25] VITALS: Ht 180.3 cm; Wt 86.6 kg
[2017-11-01 17:09] VITALS: BP 122/71
[2017-11-01 21:01] VITALS: BP 128/86
[2017-11-02 06:22] VITALS: BP 120/85
[2017-11-02 08:51] VITALS: BP 127/77
[2017-11-02] MEDS ORDERED: HYDROCODON-ACE1 EAC7 PO (16:48)
[2017-11-02] MEDS ORDERED: FLOMAX0.4 MG PO (16:48)
[2017-11-15 07:31] LABS: CALCULI - CA OXALATE MONOHYDR 75 % (()); CALCULI - CALCIUM PHOSPHATE 15 % (()); CALCULI - COLOR Brown (()); CALCULI - DRIED BLOOD 10 % (()); CALCULI - SIZE 8x6x4 mm (()); CALCULI - WEIGHT 100.3 mg (())
== END 2017-11-02 18:15 | disposition home or self-care (01) | DRG 669 ==
LOC: D.M2 17:00
PROVIDERS: Family Medicine; Urology
PROC: 0T778DZ Dilation of Left Ureter with Intraluminal Device, Via Natural or Artificial Opening Endoscopic (ICD-10-PCS; 2017-11-02)
PROC: BT1F1ZZ Fluoroscopy of Left Kidney, Ureter and Bladder using Low Osmolar Contrast (ICD-10-PCS; principal; 2017-11-02 10:45)
PROC: 0TC78ZZ Extirpation of Matter from Left Ureter, Via Natural or Artificial Opening Endoscopic (ICD-10-PCS; 2017-11-02 10:45)
DX: N20.1 Calculus of ureter (principal); I42.9 Cardiomyopathy, unspecified; I25.10 Atherosclerotic heart disease of native coronary artery without angina pectoris; Z95.5 Presence of coronary angioplasty implant and graft; I10 Essential (primary) hypertension; E78.5 Hyperlipidemia, unspecified

== ENCOUNTER 2018-07-02 08:40 | Outpatient (CLI) | payer OTHER ==
[~2018-07-02] VITALS: Ht 180.3 cm; Wt 88.2 kg
--- NOTE | ~2018-07-02 | HEMODYNAMI ---
PATIENT:AKIL HYDE MEDICAL RECORD: [id number] : 41 LOCATION:D.CAT ADMISSION DATE: 07/02/18 Generatedon:07/02/201810:32 Patient name: AKIL HYDE Patient #: [id number] SSN: D OB: 1945 Date of study: 07/02/2018 Page: Of Hemodynamic Procedure Report Patient Data Patient Demographics Procedure consent was obtained First Name: AKIL Gender: Male Last Name: MARY ELLEN : 1945 Middle Initial: TRINA Age: 73 year(s) Patient #: [id number] Race: Unknown Additional ID: [id number] Contact details [address]: [address] [place] [address] State: [place] City: [place] Zip code: [address] Past Medical History Allergies: No known allergies Admission Admission Data Admission Date: 07/02/2018 Admission Time: 8:40 Admit Source: Other Height (in.): 61 BSA: 1.88 (m2) Height (cm.): 154.94 BMI: 37.22 (kg/m2) Weight (lbs.): 197 Weight (kg.): 89.36 Lab Results Lab Result Date: 07/02/2018 Lab Result Time: 0:00 Biochemistry Name Units Result Min Max BUN mg/dl 27 --(----)-* 7 18 Creatinine mg/dl 1.5 --(----)-* 0.6 1.3 CBC Name Units Result Min Max Hemoglobin g/dl 15.8 --(--*-)-- 13.5 17.5 Procedure Procedure Types Cath Procedure Diagnostic Procedure LHC [facility] w/Coronaries Sedation Charges Moderate Sedation up to 15 minutes PCI Procedure Coronary Stent Coronary Stent Initial Procedure Description Procedure Date Procedure Date: 07/02/2018 Procedure Start Time: 10:14 Procedure End Time: 10:28 Procedure Staff Name Function Laci Lambert MD Performing Physician Dolly Palacio RT Monitor Syeda Rich RT Scrub French Garcia RN Nurse Procedure Data Cath Procedure Fluoroscopy Diagnostic fluoroscopy Total fluoroscopy Time: 5.3 time: 5.3 min min Diagnostic fluoroscopy Total fluoroscopy dose: 921 dose: 921 mGy mGy Contrast Material Contrast Material Type Amount (ml) Isovue 300 85 Entry Location Entry Primary Successful Side Size Upsize Upsize Entry Closure Wright ccessful Closure Location (Fr) 1 (Fr) 2 (Fr) Remarks Device Remarks Radial Right 6 Fr Mechanical tr artery Short Compression Estimated blood loss: 10 ml Diagnostic catheters Device Type Used For End Catheter Placement DIAGNOSTIC [place] 110cm 5 Procedure Fr catheter ([id number]) DIAGNOSTIC AR2 MOD 5 Fr Procedure catheter ([id number]) Procedure Complications No complications Procedure Medications Medication Administration Route Dosage 0.9% NaCl I.V. 100 ml/hr Oxygen etCO2 Nasal cannula 2 l/min Heparin Flush Bag added to field 2 bags (1000units/500ml NS) Lidocaine 2% added to field 20 Radial Cocktail added to field 1 syringe (Verapomil 2mg/Nitro 400mcg/Heparin 1500units) Zofran I.V. 4 mg Versed I.V. 2 mg Fentanyl I.V. 100 mcg Radial Cocktail I.A. 1 syringe (Verapomil 2mg/Nitro 400mcg/Heparin 1500units) Heparin Bolus I.V. 4000 units Integrilin (Bolus I.V. 7.9 ml 2mg/ml) Integrilin (Bolus wasted 2.1 ml 2mg/ml) Plavix P.O. 600 mg Hemodynamics Rest BSA: 1.88 (m2) HGB: 15.8 (g/dl) O2 Consumption: Estimated: 209.05 (ml/min) O2 Co nsumption indexed: Estimated:111.2 (ml/min/m) Heart Rate: 60 (bpm) Snapshots Pre Cath Intra NCS Post Cath Vital Signs Time Heart Resp SPO2 etCO2 NIBP Rhythm Pain Sedation Rate (ipm) (%) (mmHg) (mmHg) Status Level (bpm) 9:56:02 64 16 95 0 140/80(98) NSR 0 (11) 10(A) , No pain 10:00:12 62 16 92 0 133/79(93) NSR 0 (11) 10(A) , No pain 10:04:22 62 17 91 0 137/74(90) NSR 0 (11) 10(A) , No pain 10:08:32 64 13 91 25 120/79(93) NSR 0 (11) 10(A) , No pain 10:12:40 65 14 93 35.6 130/70(97) NSR 0 (11) 10(A) , No pain 10:16:54 74 13 92 15.1 92/59(78) NSR 0 (11) 9(A) , No pain 10:21:42 69 19 92 25.7 113/71(88) NSR 0 (11) 9(A) , No pain 10:25:50 68 19 92 2.2 113/58(76) NSR 0 (11) 10(A) , No pain Medications Time Medication Route Dose Verified Delivered Reason Not es Effectiveness by by 10:02:18 0.9% NaCl I.V. 100 French French Per physician ml/hr Jose Garcia RN RN 10:03:08 Oxygen etCO2 2 l/min French French Per physician Nasal Jose Garcia cannula RN RN 10:03:19 Heparin Flush added 2 bags French French used for Bag to Jose Garcia procedure (1000units/500ml RN RN NS) 10:03:27 Lidocaine 2% added 20ml French French for local to vial Lorigan Jose anesthetic RN RN 10:03:38 Radial Cocktail added 1 French French used for (Verapomil to syringe Jose Garcia procedure 2mg/Nitro RN RN 400mcg/Heparin 1500units) 10:04:08 Zofran I.V. 4 mg French French for nausea Jose Garcia RN RN 10:13:58 Versed I.V. 2 mg French French for sedation Jose Garcia RN RN 10:14:06 Fentanyl I.V. 100 mcg French French for sedation Jose Garcia RN RN 10:15:44 Radial Cocktail I.A. 1 French Laci for (Verapomil syringe Jose benjamin 2mg/Nitro RN 400mcg/Heparin 1500units) 10:24:07 Heparin Bolus I.V. 4000 French French for units Jose Garcia anticoagulation RN RN 10:24:26 Integrilin I.V. 7.9 ml French French for (Bolus 2mg/ml) Jose Garcia antiplatelet RN RN therapy 10:24:35 Integrilin wasted 2.1ml French French to sharp's (Bolus 2mg/ml) Jose Garcia RN RN 10:27:47 Plavix P.O. 600 mg French French for Jose Garcia antiplatelet RN RN therapy Procedure Log Time Note 9:40:30 French Garcia RN sent for patient. Start room use. 9:47:28 Admit Source: Other 9:47:42 Patient Height : 61 inches 9:47:49 Patient Weight : 197 lbs 9:54:37 Time tracking: Regular hours (M-F 7:00 - 5:00) 9:54:40 Plan of Care:Hemodynamics will remain stable., Cardiac rhythm will remain stable., Comfort level will be maintained., Respiratory function will remain adequate., Patient/ family verbilizes understanding of procedure., Procedure tolerated without complication., Recovers from procedure without complications.. 9:54:46 Patient received from Pre/Post Procedure Room to [facility] 2 Alert and oriented. Tansferred to table in Supine position. 9:54:47 Warm blankets applied, and julian hugger turned on for patient comfort. 9:54:47 Correct patient and procedure confirmed by team. 9:54:49 Signed procedure consent form obtained from patient. 9:54:52 ECG and BP/O2 sat monitors applied to patient. 9:54:53 Vital chart was started 9:54:57 Baseline sample Acquired. 9:55:01 Rhythm: sinus rhythm 9:55:03 Full Disclosure recording started 9:55:06 H&P Date Dictated: 07/02/2018 Within 30 days and on chart., H&P Addendum completed by physician on day of procedure. (MUST COMPLETE FOR ALL OUTPATIENTS). 9:55:08 Pre-procedure instructions explained to patient. 9:55:08 Pre-op teaching completed and patient verbalized understanding. 9:55:09 Family in waiting room. 9:55:11 Patient NPO since Midnight. 9:55:13 Is the patient allergic to Iodine/contrast media? No. 9:55:14 Was the patient premedicated? No 9:55:28 Is patient on blood thinner?No 9:55:29 Patient diabetic? No. 9:55:31 Previous problem with sedation/anesthesia? No ? 9:55:33 Snore? Yes 9:55:33 Sleep apnea? Yes 9:55:34 Deviated septum? No 9:55:35 Opens mouth fully? Yes 9:55:36 Sticks out tongue? Yes 9:55:37 Airway obstruction? No ? 9:55:39 Dentures? No ? 9:55:44 Pre procedure: right dorsailis pedis pulse 2+ Normal; easily identifiable; not easily obliterated 9:55:47 Pre procedure: left dorsailis pedis pulse 2+ Normal; easily identifiable; not easily obliterated 9:55:54 Patient pain scale 0/10 ?. 9:56:03 IV patent on arrival in left forearm with 0.9% NaCl at [facility]. 9:56:05 Lab results completed and on chart. 9:56:08 Right Radial & Right Groin area was prepped with chlora-prep and draped in sterile fashion 9:56:09 Alarms reviewed by R. N. 9:56:10 Sharps counted by scrub and verified by R.N. 10:02:18 0.9% NaCl 100 ml/hr I.V. was administered by French Garcia RN; Per physician; 10:03:08 Oxygen 2 l/min etCO2 Nasal cannula was administered by French Garcia RN; Per physician; 10:03:19 Heparin Flush Bag (1000units/500ml NS) 2 bags added to field was administered by French Garcia RN; used for procedure; 10:03:27 Lidocaine 2% 20ml vial added to field was administered by French Garcia RN; for local anesthetic; 10:03:38 Radial Cocktail (Verapomil 2mg/Nitro 400mcg/Heparin 1500units) 1 syringe added to field was administered by French Garcia RN; used for procedure; 10:04:08 Zofran 4 mg I.V. was administered by French Garcia RN; for nausea; ::39 Lab Result : Hemoglobin 15.8 g/dl ::39 Lab Result : Creatinine 1.5 mg/dl 10::39 Lab Result : BUN 27 mg/dl 10:05:05 Physician paged 10:05:06 Physician arrived 10:05:09 --------ALL STOP TIME OUT------ 10:05:10 Final Timeout: patient, procedure, and site verified with staff and physician. All members of the team are in agreement. 10:05:11 Right Radial & Right Groin site verified by team. 10:05:17 Physical assessment completed. ASA score P 2 - A patient with mild systemic disease as per Laci Lambert MD. 10:05:20 Sedation plan: IV Moderate Sedation Medication:Versed, Fentanyl 10:06:26 Zero performed for pressure channel P1 10:13:44 Use device set Radial Dx or PCI 10:13:48 Procedure started. 10:13:55 ACIST Syringe (65276) opened to sterile field. 10:13:55 Medline Cath Pack ([id number]) opened to sterile field. 10:13:56 Bag Decanter (2002S) opened to sterile field. 10:13:57 DIAGNOSTIC WIRE .035 260cm J wire (578187) opened to sterile field. 10:13:58 Versed 2 mg I.V. was administered by French Garcia RN; for sedation; 10:13:58 ACIST Hand Control (34387) opened to sterile field. 10:13:59 ACIST Manifold (70085) opened to sterile field. 10:14:00 Tegaderm 4 x 4 (1626W) opened to sterile field. 10:14:01 MBrace Wrist Support ([id number]) opened to sterile field. 10:14:06 Fentanyl 100 mcg I.V. was administered by French aGrcia RN; for sedation; 10:14:06 SHEATH 6FR Slender (69-1060) opened to sterile field. 10:14:17 Local anesthetic to right radial artery with Lidocaine 2% by Laci Lambert MD.INITIAL ACCESS ONLY 10:14:29 A 6 Fr Short sheath was inserted into the Right Radial artery 10:15:28 A DIAGNOSTIC [place] 110cm 5 Fr catheter (127442) was advanced over the wire and used for Procedure. 10:15:44 Radial Cocktail (Verapomil 2mg/Nitro 400mcg/Heparin 1500units) 1 syringe I.A. was administered by Laci Lambert MD; for vasodilation; 10:16:08 LV angiography performed. 10:17:38 A DIAGNOSTIC AR2 MOD 5 Fr catheter ([id number]) was advanced over the wire and used for Procedure. 10:17:43 RCA angiography performed. 10:18:43 Catheter removed. 10:18:46 GUIDE 6FR XBLAD 3.5 catheter (30878721) opened to sterile field. 10:18:52 LCA angiography performed. 10:21:08 Proceeding to intervention. 10:24:07 Heparin Bolus 4000 units I.V. was administered by French Garcia RN; for anticoagulation; 10:24:10 INFLATOR Merit BasixCompak (PD0632) opened to sterile field. 10:24:10 CHOICE PT Extra Support 182cm wire ([id number]) opened to sterile field. 10:24:26 Integrilin (Bolus 2mg/ml) 7.9 ml I.V. was administered by French Garcia RN; for antiplatelet therapy; 10::33 choice pt wire advanced. 10::34 Wire advanced across lesion. 10:24:35 Integrilin (Bolus 2mg/ml) 2.1ml wasted was administered by French Garcia RN; to sharp's; 10:24:58 Place stent Inflation Number: 1 A JACINTA RX 2.75 x 12 stent ([id number]) was prepped and advanced across the Dist LAD. The stent was deployed at 13 GRACE for 0:05 (min:sec). 10:25:03 Inflation number: 2 The stent balloon was then re-inflated across the Dist LAD to 17 GRACE for 0:00 (min:sec). 10:25:06 Inflation number: 3 The stent balloon was then re-inflated across the Dist LAD to 21 GRACE for 0:00 (min:sec). 10:26:05 Wire removed. 10:26:07 Guide catheter removed. 10:26:19 Sheath removed intact; hemostasis achieved with Mechanical Compression to the Right Radial artery. 10::22 Procedure ended.(Physican Out) 10::33 Fluoroscopy time 05.30 minutes. 10::37 Flurop Dose total: 921 10::37 Fluoroscopy dose: 921 mGy 10::42 Contrast amount:Isovue 300 85ml. 10:26:47 TR band inflated with 10cc of air. 10:26:48 Insertion/operative site no bleeding no hematoma. 10:26:54 Post right radial artery:stable 10:26:56 Post Procedure Pulses reassessed and unchanged 10:27:00 Post procedure rhythm: unchanged. 10:27:09 Estimated blood loss: 10 ml 10:27:10 Post procedure instruction explained to patient.Patient verbalizes understanding. 10:27:21 Procedure type changed to Cath procedure, Diagnostic procedure, LHC, LHC w/Coronaries, Sedation Charges, Moderate Sedation up to 15 minutes, PCI procedure, Coronary Stent, Coronary Stent Initial 10:27:32 Procedure and supply charges have been captured, reviewed, submitted and are correct. 10:27:47 Plavix 600 mg P.O. was administered by French Garcia RN; for antiplatelet therapy; 10::54 Procedure Complication : No complications 10::57 Vital chart was stopped 10::57 See physician's report for complete and final results. 10::59 Report given to Pre/Post Procedure Room. 10:28:02 Patient transfered to Pre/Post Procedure Room with Stretcher. 10:28:05 Procedure ended. 10:28:05 Full Disclosure recording stopped 10:28:09 End room use (Document Last) 10:28:13 ACC-PCI Only Patient was given prescriptions, or instructed by Laci Lambert MD to start/continue the following medications upon discharge: Plavix Intervention Summary Intervention Notes Time ActionType Lesion and Equipment Used Action# Pressure Duration Attributes 10:24:58 Place stent Dist LAD JACINTA RX 2.75 x 1 13 00:05 12 stent ([id number]) 10:25:03 Reinflate Dist LAD JACINTA RX 2.75 x 2 17 00:00 stent 12 stent balloon ([id number]) 10:25:06 Reinflate Dist LAD JACINTA RX 2.75 x 3 21 00:00 stent 12 stent balloon ([id number]) Device Usage Item Name Manufacture Quantity Catalog Number Hospital Part Current M inimal Lot# / Charge Number Stock Stock Serial# Code ACIST Syringe Acist 1 38103 700000 820663 340308 2 0 (64415) Medical Systems Inc Medline Cath Medline 1 [id number] 250248 83924 927801 5 Pack ([id number]) Bag Decanter Microtek 1 941083 84149 692230 5 () Medical Inc. DIAGNOSTIC St Aaron 1 766639 066311 756663 532166 3 0 WIRE .035 260cm J wire (532736) ACIST Hand Acist 1 47680 456655 265523 841947 5 Control Medical (60485) Systems Inc ACIST Manifold Acist 1 25008 064488 551239 217984 5 (98917) Medical Systems Inc Tegaderm 4 x 4 3M 1 1626W 304144 708175 684117 5 (1626W) MBrace Wrist Advanced 1 140-0250-00 777145 37766 261465 5 Support Vascular ([id number]) Dynamics SHEATH 6FR Terumo 1 [id number] 196297 794726 195230 5 Slender (80-1060) DIAGNOSTIC Terumo 1 40-5013 668305 187460 729666 5 [place] 110cm 5 Fr catheter (944142) DIAGNOSTIC AR2 Cardinal 1 [id number] 139368 458186 775601 2 0 MOD 5 Fr Health catheter (974860R) GUIDE 6FR Cardinal 1 [id number] 223601 946370 779197 1 0 XBLAD 3.5 Health catheter (92784465) INFLATOR Merit Merit 1 QT1574 316512 591809 297977 1 5 TocomailncBlekko (FX2217) CHOICE PT [place] 1 [id number] 863880 827339 963906 5 Extra Support Scientific 182cm wire ([id number]) JACINTA RX 2.75 x Medtronic 1 [id number] 295113 3921845 235226 5 [id number] 12 stent ([id number]) Signature Audit [place]once Stage Time Signature Unsigned Intra-Procedure 07/02/2018 Dolly Palacio 10:32:51 AM RT(R) Signatures Monitor : Dolly Palacio Signature : RT Date : Time : [facility] [address] [place] [address]
--- NOTE | ~2018-07-02 | OP ---
PATIENT NAME: AKIL HYDE MEDICAL RECORD: [id number] :41 LOCATION:D.CAT ADMISSION DATE: SURGEON: MAGALY COOK MD DATE OF OPERATION: 07/02/2018 PROCEDURES: 1. PTCA stent LAD. 2. Left heart catheterization. 3. Selective coronary angiography. 4. Left ventriculogram. INDICATION: Angina and coronary artery disease. PROCEDURE IN DETAIL: After informed consent was obtained and after a detailed description of risks, benefits as well as alternative therapies, the patient elected to proceed with angiogram and angioplasty. The right radial area was prepped and draped in normal sterile fashion. Right radial artery was cannulated via modified Seldinger technique with placement of 6-Kuwaiti sheath. All catheters exchanged through this sheath. FINDINGS: Left ventriculogram was performed in standard 30-degree RODRIGEZ view, reveals good cardiac wall motion throughout all segments. Overall ejection fraction estimated 60%. SELECTIVE CORONARY ANGIOGRAPHY: 1. Left main is with no significant angiographic disease. 2. Left anterior descending has previously placed stents. There is 95% in-stent restenosis in the mid vessel. 3. Left circumflex has mild irregularities, but no flow-limiting stenosis. 4. Right coronary has mild irregularities, but no flow-limiting stenosis. PTCA STENT OF THE LAD: The stent used was a 2.75 x 12 mm [place]. Result was 0% residual stenosis. OVERALL IMPRESSION: Successful PTCA stent of the LAD going from 95% in-stent restenosis to 0% residual stenosis. TRANSINT:[id number] Voice Confirmation ID: [id number] DOCUMENT ID: [id number] MAGALY COOK MD at 1228 CC: [id number] DICTATION DATE: 07/02/18 1032 FORMULA TECHNICIAN: 07/02/18 1152 DEP CLI 07/02/18 [place] [id number]
[~2018-07-02 08:40] MED LIST changes: +FLOMAX0.4 MG PO; +HYDROCODON-ACE1 EAC7 PO; +ULTRAM50 MG PO
[2018-07-02] MEDS ORDERED: VOLTAREN75 MG PO (08:56)
[2018-07-02] MEDS ORDERED: POTASSIUM99 M1 PO (08:57)
[2018-07-02 09:08] VITALS: BP 139/81; Ht 180.3 cm; Wt 88.2 kg
[2018-07-02 09:19] LABS: BASOPHILS 0.6 % (0-2); EOSINOPHILS 2.8 % (0-7); HEMATOCRIT 44.4 % (42.0-54.0); HEMOGLOBIN 15.8 g/dL (13.5-17.5); IMMATURE GRANULOCYTES 0.2 % (0-5); LYMPHOCYTES 27.6 % (15-50); MCHC 35.6 g/dL (31.0-37.0); MCV 87.1 fL (80.0-100.0); MEAN PLATELET VOLUME 10.1 fL (7.4-10.4); MONOCYTES 6.4 % (2-11); NEUTROPHILS 62.4 % (40-80); PLATELET COUNT 162 10x3/uL (130-400)
[2018-07-02 09:37] LABS: ANION GAP 14.9 mmol/L (8-16); CALCIUM 8.8 mg/dL (8.5-10.1); CARBON DIOXIDE 25.7 mmol/L (21.0-32.0); CREATININE - SERUM 1.5 mg/dL (0.6-1.3); POTASSIUM - SERUM 4.6 mmol/L (3.5-5.1)
[2018-07-02] MEDS ORDERED: PLAVIX75 MG PO (10:49)
== END 2018-07-02 15:25 | disposition home or self-care (01) ==
LOC: D.CATH 08:40
PROVIDERS: Internal Medicine Interventional Cardiology
DX: I25.119 Atherosclerotic heart disease of native coronary artery with unspecified angina pectoris (principal); T82.855A Stenosis of coronary artery stent, initial encounter; Z01.812 Encounter for preprocedural laboratory examination
CPT/HCPCS: 93458; C9600

== ENCOUNTER 2019-06-02 08:41 | Observation (INO) | payer OTHER ==
[2019-06-02] VITALS (7 sets, daily range): BP systolic 101–138; BP diastolic 42–81; Ht 180.3 cm; Wt 86.4 kg
[~2019-06-02] VITALS: Ht 180.3 cm; Wt 86.4 kg
--- NOTE | ~2019-06-02 | HEMODYNAMI ---
PATIENT:AKIL HYDE MEDICAL RECORD: [id number] : 41 LOCATION:[address] [id number] ADMISSION DATE: 06/02/19 Generatedon:06/03/201910:59 Patient name: AKIL HYDE Patient #: [id number] SSN: [id number] : 1945 Date of study: 06/03/2019 Page: Of Hemodynamic Procedure Report Patient Data Patient Demographics Procedure consent was obtained First Name: AKIL Gender: Male Last Name: MARY ELLEN : 1945 Middle Initial: TRINA Age: 74 year(s) Patient #: [id number] Race: SSN: [id number] Additional ID: [id number] Contact details Address: [address] [place] [address] State: [place] City: [place] Zip code: [address] Past Medical History Allergies: No known allergies Admission Admission Data Admission Date: 06/02/2019 Admission Time: 10:39 Arrival Date: 06/02/2019 Arrival Time: 10:39 Admit Source: Emergency Insurance Payor: Private department health insurance Room #: D.2122 [facility] #: [id number] Lab Results Lab Result Date: 06/03/2019 Lab Result Time: 0:00 Biochemistry Name Units Result Min Max BUN mg/dl 22 --(----)-* 7 18 Creatinine mg/dl 1.4 --(----)*- 0.6 1.3 eGFR ml/min 52 *-(----)-- 90 120 NONAFRICAN CBC Name Units Result Min Max Hemoglobin g/dl 14.9 --(-*--)-- 13.5 17.5 Procedure Procedure Types Cath Procedure Diagnostic Procedure C [facility] w/Coronaries Sedation Charges Moderate Sedation up to 30 minutes Procedure Description Procedure Date Procedure Date: 06/03/2019 Procedure Start Time: 10:39 Procedure End Time: 10:55 Procedure Staff Name Function Timmy Iniguez MD Performing Physician Syeda Rich RT Monitor Dolly Palacio RT Scrub Judy Oviedo RN Nurse Procedure Data Cath Procedure Fluoroscopy Diagnostic fluoroscopy Total fluoroscopy Time: 5.5 time: 5.5 min min Diagnostic fluoroscopy Total fluoroscopy dose: 828 dose: 828 mGy mGy Contrast Material Contrast Material Type Amount (ml) Isovue 300 65 Entry Location Entry Primary Successful Side Size Upsize Upsize Entry Closure Wright ccessful Closure Location (Fr) 1 (Fr) 2 (Fr) Remarks Device Remarks Radial Right 6 Fr Mechanical artery Short Compression Estimated blood loss: 5 ml Diagnostic catheters Device Type Used For End Catheter Placement DIAGNOSTIC Renard 110cm Multi-vessel 5Fr catheter ([id number]) Angiography DIAGNOSTIC [place] 110cm 5 Left Coronary Fr catheter ([id number]) Angiography Procedure Complications No complications Procedure Medications Medication Administration Route Dosage Oxygen etCO2 Nasal cannula 2 l/min Lidocaine 2% added to field 20 Heparin Flush Bag added to field 2 bags (1000units/500ml NS) 0.9% NaCl I.V. 100 ml/hr Versed I.V. 1 mg Fentanyl I.V. 50 mcg Radial Cocktail I.A. 1 syringe (Verapamil 2mg/Nitro 400mcg/Heparin 1500units) Versed I.V. 1 mg Fentanyl I.V. 50 mcg Hemodynamics Rest HGB: 14.9 (g/dl) Heart Rate: 78 (bpm) Pressure Samples Time Site Value (mmHg) Purpose Heart Use Rate(bpm) 10:45 LV 83/2,4 Snapshot 83 10:46 AO 117/34(77) Pullback 83 10:46 LV 97/-5,2 Pullback 83 Gradients Valve Time Site 1 Site 2 Mean SEP/DFP Peak To Heart Use (mmHg) (sec/min) Peak Rate (mmHg) (bpm) Aortic 10:46 LV AO 0 5 0 83 97/-5,2 117/34(77) Calculations Valve P-P Mean Valve Index Valve Source Name Gradient Area Flow (cm2) Aortic 0 0 0 0 Snapshots Pre Cath Intra NCS Post Cath Vital Signs Time Heart Resp SPO2 etCO2 NIBP (mmHg) Rhythm Pain Sedation Rate (ipm) (%) (mmHg) Status Level (bpm) 10:21:19 75 18 92 131/84(114) NSR 0 (11) 10(A) , No pain 10:25:27 76 21 92 136/82(114) NSR 0 (11) 10(A) , No pain 10:29:37 70 17 92 0 135/78(107) NSR 0 (11) 10(A) , No pain 10:33:47 70 10 93 8.2 125/76(102) NSR 0 (11) 9(A) , No pain 10:37:53 70 11 93 9 124/79(98) NSR 0 (11) 9(A) , No pain 10:42:00 71 11 94 0.7 124/75(95) NSR 0 (11) 9(A) , No pain 10:46:10 81 12 92 0 92/62(85) NSR 0 (11) 9(A) , No pain 10:50:04 78 23 94 10.5 111/75(94) NSR 0 (11) 9(A) , No pain 10:54:10 72 15 93 25.5 113/67(88) NSR 0 (11) 10(A) , No pain Medications Time Medication Route Dose Verified Delivered Reason Notes Effectiveness by by 10:19:29 Oxygen etCO2 2 l/min Timmy Buffie used for Nasal Hira Oviedo RN procedure cannula 10:19:35 Lidocaine 2% added 20ml Timmy Timmy for local to vial Hira Iniguez MD anesthetic field 10:19:41 Heparin Flush added 2 bags Timmy Timmy used for Bag to Hira Iniguez MD procedure (1000units/500ml field NS) 10:19:50 0.9% NaCl I.V. 100 Timmy Buffie Per ml/hr Hira Oviedo RN physician 10:29:57 Versed I.V. 1 mg Timmy Buffie for sedation Hira Oviedo RN 10:30:02 Fentanyl I.V. 50 mcg Timmy Buffie for sedation Hira Oviedo RN 10:42:30 Radial Cocktail I.A. 1 Timmy Timmy for (Verapamil syringe Hira Iniguez MD vasodilation 2mg/Nitro 400mcg/Heparin 1500units) 10:50:36 Versed I.V. 1 mg Timmy Timmy for sedation Hira Iniguez MD 10:50:39 Fentanyl I.V. 50 mcg Timmy Timmy for sedation Hira Iniguez MD Procedure Log Time Note 10:05:41 Informed consent obtained and on chart 10:07:05 Admit Source: Emergency department 10:07:11 Arrival Date: 06/02/2019 10:39:00 AM 10:07:17 Insurance Payor : Private health insurance 10:08:13 Lab Result : eGFR NONAFRICAN 52 ml/min 10:08:13 Lab Result : Creatinine 1.4 mg/dl 10:08:13 Lab Result : BUN 22 mg/dl 10:08:13 Lab Result : Hemoglobin 14.9 g/dl 10:08:36 Procedure Status Urgent Heart Cath (IP). 10:08:42 Diagnostic Cath Status : Elective 10:: Time tracking: Regular hours (M-F 7:00 - 5:00) 10:09:13 Plan of Care:Hemodynamics will remain stable., Cardiac rhythm will remain stable., Comfort level will be maintained., Respiratory function will remain adequate., Patient/ family verbilizes understanding of procedure., Procedure tolerated without complication., Recovers from procedure without complications.. 10:09:16 Dolly HATFIELD(R) sent for patient. Start room use. 10:11:28 Risk of Mortality: 1.2 10:11:33 Risk of blood transfusion: 0.9 10:11:39 Risk of LEAH: 7.4 10:11:59 3a) 45-59 Moderately reduced kidney function. 10:12:03 Maximum allowable contrast dose (3.7 X eGFR X 0.75)144.3 ml. 10:19:29 Oxygen 2 l/min etCO2 Nasal cannula was administered by Judy Oviedo RN; used for procedure; Verbal order read back and verified. 10:19:35 Lidocaine 2% 20ml vial added to field was administered by Timmy Iniguez MD; for local anesthetic; Verbal order read back and verified. 10:19:41 Heparin Flush Bag (1000units/500ml NS) 2 bags added to field was administered by Timmy Iniguez MD; used for procedure; Verbal order read back and verified. 10:19:50 0.9% NaCl 100 ml/hr I.V. was administered by Judy Oviedo RN; Per physician; Verbal order read back and verified. 10:19:52 Vital chart was started 10:25:16 Patient received from Med II to [facility] 2 Alert and oriented. Tansferred to table in Supine position. 10:25:18 Warm blankets applied, and julian hugger turned on for patient comfort. 10:25:18 Correct patient and procedure confirmed by team. 10:25:18 ECG and BP/O2 sat monitors applied to patient. 10:25:19 Baseline sample Acquired. 10:25:23 Rhythm: sinus rhythm 10:25:24 Full Disclosure recording started 10:25:28 H&P Date Dictated: 06/03/2019 ER History on chart., New H&P dictated by physician.. 10:25:29 Pre-procedure instructions explained to patient. 10:25:30 Pre-op teaching completed and patient verbalized understanding. 10:25:32 Family in patients room. 10:25:34 Patient NPO since Midnight. 10:25:35 Is the patient allergic to Iodine/contrast media? No. 10:25:36 Was the patient premedicated? No 10:25:38 Is patient on blood thinner?Yes 10:25:41 ACC The patient was administered the following blood thiners within the last 24 hours: ACCAspirin 10:25:44 Patient diabetic? No. 10:25:48 Previous problem with sedation/anesthesia? No ? 10:25:49 Snore? Yes 10:25:50 Sleep apnea? Yes 10:25:52 Deviated septum? No 10:25:53 Opens mouth fully? Yes 10:25:54 Sticks out tongue? Yes 10:25:56 Airway obstruction? No ? 10:25:58 Dentures? No ? 10:26:01 Pre procedure: right dorsailis pedis pulse 2+ Normal; easily identifiable; not easily obliterated 10:26:03 Pre procedure: left dorsailis pedis pulse 2+ Normal; easily identifiable; not easily obliterated 10:26:05 Patient pain scale 0/10 ?. 10:26:07 Modified Martin's test Radial < 7 seconds 10:26:13 IV patent on arrival in left forearm with 0.9% NaCl at KVO. 10:26:15 Lab results completed and on chart. 10:26:20 Stress Test: no; N/A ? 10:26:27 Right Radial & Right Groin area was prepped with chlora-prep and draped in sterile fashion 10:26:28 Alarms reviewed by R. N. 10:26:28 Sharps counted by scrub and verified by R.N. 10:26:29 Physician arrived 10:26:29 --------ALL STOP TIME OUT------ 10:26:30 Final Timeout: patient, procedure, and site verified with staff and physician. All members of the team are in agreement. 10:26:32 Right Radial & Right Groin site verified by team. 10:26:36 Fire Safety Assessment: A--An alcohol-based skin anteseptic being used preoperatively., C--Open oxygen or nitrous oxide is being used., D--An ESU, laser, or fiber-optic light is being used. 10:26:38 Physical assessment completed. ASA score P 2 - A patient with mild systemic disease as per Timmy Iniguez MD. 10:26:42 Sedation plan: IV Moderate Sedation Medication:Versed, Fentanyl 10:26:46 Use device set Radial Dx or PCI 10:26:47 ACIST Syringe (65512) opened to sterile field. 10:26:47 Medline Cath Pack ([id number]) opened to sterile field. 10:26:47 Bag Decanter (2002S) opened to sterile field. 10:26:48 ACIST Hand Control (42701) opened to sterile field. 10:26:49 ACIST Manifold (76753) opened to sterile field. 10:26:50 Tegaderm 4 x 4 (1626W) opened to sterile field. 10:26:51 MBrace Wrist Support (532745055) opened to sterile field. 10:26:52 NEEDLE Cook 21G 4cm Radial (D45524) opened to sterile field. 10:26:55 EMERALD Guide Wire (998-205) opened to sterile field. 10:26:55 SHEATH 6FR RAIN (0412038) opened to sterile field. 10:29:57 Versed 1 mg I.V. was administered by Judy Oviedo RN; for sedation; Verbal order read back and verified. 10:30:02 Fentanyl 50 mcg I.V. was administered by Judy Oviedo RN; for sedation; Verbal order read back and verified. 10:39:43 Procedure started. 10:39:54 Local anesthetic to right radial artery with Lidocaine 2% by Timmy Iniguez MD.INITIAL ACCESS ONLY 10:42:14 A 6 Fr Short sheath was inserted into the Right Radial artery 10:42:29 A DIAGNOSTIC Renard 110cm 5Fr catheter (373775) was advanced over the wire and used for Multi-vessel Angiography. 10:42:30 Radial Cocktail (Verapamil 2mg/Nitro 400mcg/Heparin 1500units) 1 syringe I.A. was administered by Timmy Iniguez MD; for vasodilation; Verbal order read back and verified. 10:43:44 Zero performed for pressure channel P1 10:44:58 RCA angiography performed. 10:45:05 Injector settings: Ml/sec: 3, Volume: 6, 10:45:55 LV hemodynamics recorded. 10:45:56 LV gram done using RODRIGEZ 10:45:58 Injector settings: Ml/sec: 5, Volume: 15, 10:46:12 EF : 20 % 10:47:24 Catheter removed. 10:47:38 A DIAGNOSTIC [place] 110cm 5 Fr catheter (673962) was advanced over the wire and used for Left Coronary Angiography. 10:49:17 Catheter removed. 10:50:36 Versed 1 mg I.V. was administered by Timmy Iniguez MD; for sedation; Verbal order read back and verified. 10:50:38 GUIDE 6FR EBU 3.5 catheter ([id number]) opened to sterile field. 10:50:39 Fentanyl 50 mcg I.V. was administered by Timmy Iniguez MD; for sedation; Verbal order read back and verified. 10:51:35 LCA angiography performed. 10:51:38 Injector settings: Ml/sec: 3, Volume: 6, 10:52:48 ACCDominant side:Right 10:52:49 Catheter removed. 10:52:57 ZEPHYR REGULAR TR BAND (866043) opened to sterile field. 10:53:09 Sheath removed intact; hemostasis achieved with Mechanical Compression to the Right Radial artery. 10:53:30 Procedure ended.(Physican Out) 10:54:06 Fluoroscopy time 05.50 minutes. 10:54:09 Flurop Dose total: 828 10:54:09 Fluoroscopy dose: 828 mGy 10:54:18 Dose Area Product 68190 mGy/cm. 10:54:21 Contrast amount:Isovue 300 65ml. 10:54:23 Sharps counted by scrub and verified by R.N. 10:54:26 [place] band inflated with 10cc of air. 10:54:27 Insertion/operative site no bleeding no hematoma. 10:54:30 Post right radial artery:stable 10:55:04 Post Procedure Pulses reassessed and unchanged 10:55:06 Post procedure rhythm: unchanged. 10:55:09 Estimated blood loss: 5 ml 10:55:11 Post procedure instruction explained to patient.Patient verbalizes understanding. 10:55:11 Patient needs reinforcement of post procedure teaching. 10:55:22 Procedure type changed to Cath procedure, Diagnostic procedure, LHC, [facility] w/Coronaries, Sedation Charges, Moderate Sedation up to 30 minutes 10:55:23 Procedure and supply charges have been captured, reviewed, submitted and are correct. 10:55:27 Procedure Complication : No complications 10:55:29 Vital chart was stopped 10:55:34 [facility] Findings: mild to moderate CAD (<70%) 10:55:35 Operative report dictated upon procedure completion. 10:55:37 See physician's report for complete and final results. 10:55:40 Report given to [facility]. 10:55:42 Patient transfered to [facility] with Stretcher. 10:55:44 Procedure ended. 10:55:44 Full Disclosure recording stopped 10:56:00 End room use (Document Last) Device Usage Item Name Manufacture Quantity Catalog Hospital Part Current Minima l Lot# / Number Charge Number Stock Stock Serial# Code ACIST Acist 1 35907 317404 757908 [id number] 20 Syringe Medical (98315) Systems Inc Medline Medline 1 [id number] 631583 89739 542385 5 Cath Pack ([id number]) Bag Microtek 1 440960 88754 147938 5 Decanter Medical Inc. () ACIST Hand Acist 1 58268 910658 933143 770404 5 Control Medical (89184) Systems Inc ACIST Acist 1 93474 026048 151685 121952 5 Manifold Medical (82239) Systems Inc Tegaderm 4 3M 1 1626W 966604 278559 074008 5 x 4 (1626W) MBrace Advanced 1 140-0250-00 775576 87464 076973 5 Wrist Vascular Support Dynamics ([id number]) NEEDLE HomeAway Cook Medical 1 R77696 663948 048435 631941 5 21G 4cm Radial (H96256) EMERALD Cardinal 1 502-455 575229 075004 569694 5 Guide Wire Health (419-855) SHEATH 6FR Cardinal 1 1873702 923517 7371504 470124 5 RAIN Health (5893056) DIAGNOSTIC Terumo 1 40-5023 529071 720270 709272 5 Renard 110cm 5Fr catheter (832116) DIAGNOSTIC Terumo 1 40-5013 591046 393051 336855 5 [place] 110cm 5 Fr catheter (768270) GUIDE 6FR Medtronic 1 [id number] 747875 05989 711291 3 EBU 3.5 catheter ([id number]) ZEPHYR Cardinal 1 405725 601212 1059548 205166 5 REGULAR TR Health BAND (452092) Signature Audit [place] Stage Time Signature Unsigned Intra-Procedure 06/03/2019 Syeda Rich 10:58:07 AM RT(R) Intra-Procedure 06/03/2019 Judy Oviedo RN 10:58:40 AM Intra-Procedure 06/03/2019 Timmy Iniguez MD 10:59:03 AM Signatures Performing Physician : Signature : Timmy Iniguez MD Date : Time : Monitor : Syeda Rich RT Signature : Date : Time : Nurse : Judy Oviedo RN Signature : Date : Time : [facility] [address], [place] [address]
[~2019-06-02 08:41] MED LIST changes: +VOLTAREN75 MG PO
[2019-06-02] MEDS ORDERED: NITROSTAT0.4 MG SL (08:45)
[2019-06-02 09:12] LABS: BASOPHILS 0.2 % (0-2); EOSINOPHILS 2.8 % (0-7); HEMATOCRIT 43.7 % (42.0-54.0); HEMOGLOBIN 15.1 g/dL (13.5-17.5); IMMATURE GRANULOCYTES 0.2 % (0-5); LYMPHOCYTES 24.5 % (15-50); MCH 31.5 pg (26.0-34.0); MCHC 34.6 g/dL (31.0-37.0); MONOCYTES 6.5 % (2-11); NEUTROPHILS 65.8 % (40-80); PLATELET COUNT 161 10x3/uL (130-400); WBC 4.7 10x3/uL (4.8-10.8)
[2019-06-02 09:22] LABS: INR 1.05 (0.85-1.17); PROTIME 13.2 SECONDS (11.6-15.0)
[2019-06-02 09:23] LABS: CALC OSMOLALITY 286 mosm/kg (275-300); CALCIUM 8.8 mg/dL (8.5-10.1); CARBON DIOXIDE 24.5 mmol/L (21.0-32.0); CHLORIDE - SERUM 107 mmol/L (98-107); CREATININE - SERUM 1.5 mg/dL (0.6-1.3); GLUCOSE 138 mg/dL (74-106); POTASSIUM - SERUM 4.5 mmol/L (3.5-5.1); SODIUM 141 mmol/L (136-145); UREA NITROGEN 25 mg/dL (7-18); eGFR NON AFRICAN AMERICAN 48 mL/min (90-120)
[2019-06-02 09:38] LABS: ALBUMIN 3.8 g/dL (3.4-5.0); ALKALINE PHOSPHATASE 72 U/L (46-116); ALT (SGPT) 32 U/L (10-68); BILIRUBIN - TOTAL 0.72 mg/dL (0.2-1.3); CKMB 7.8 U/L (0.0-3.6); CREATINE KINASE 524 UL (21-232); MAGNESIUM - SERUM 1.6 mg/dL (1.8-2.4); PROTEIN - SERUM 6.9 g/dL (6.4-8.2); TROPONIN-I 0.035 ng/mL (0.000-0.060)
--- NOTE | 2019-06-02 10:00 | NUR ---
PATIENT URINAL 500 MLS EMPTIED; SPOUSE AT BEDSIDE; PATIENT/SPOUSE UPDATED ON PLAN OF CARE AND DELAYS IN CARE; EDP NOIFIED OF CHEST DISCOMFORT INCREASE TO 3/10 LEFT ANTERIOR CHEST
--- NOTE | 2019-06-02 11:19 | NUR ---
RECEIVED PT TO ROOM VIA WHEELCHAIR, PT ABLE TO TRANSFERED FROM WHEELCHAIR TO BED WITH STEADY GATE. PT A/O X4, RESP EVEN AND NONLABORED ON RA. DENIES ANY CHEST PAIN AT THIS TIME. ORIENTED PT TO ROOM AND CALL LIGHT. WILL ASSES PT AND START PLAN OF CARE.
[2019-06-02] MEDS ORDERED: ARTHROTEC EC 71 EACH PO (11:28)
[2019-06-02 18:09] LABS: ANION GAP 17.2 mmol/L (8-16); CALCIUM 8.5 mg/dL (8.5-10.1); CARBON DIOXIDE 23.8 mmol/L (21.0-32.0); CHOL - HDL RATIO 2.7 ratio (2.3-4.9); CREATININE - SERUM 1.5 mg/dL (0.6-1.3); LDL-HDL RATIO 1.2 ratio (1.5-3.5)
[2019-06-02 18:41] LABS: BASOPHILS 0.6 % (0-2); EOSINOPHILS 3.2 % (0-7); HEMOGLOBIN 14.8 g/dL (13.5-17.5); IMMATURE GRANULOCYTES 0.4 % (0-5); LYMPHOCYTES 32.4 % (15-50); MCH 31.5 pg (26.0-34.0); MCHC 34.4 g/dL (31.0-37.0); MCV 91.5 fL (80.0-100.0); MEAN PLATELET VOLUME 9.9 fL (7.4-10.4); MONOCYTES 7.1 % (2-11); NEUTROPHILS 56.3 % (40-80); PLATELET COUNT 151 10x3/uL (130-400); RDW 13.1 % (11.5-14.5); WBC 4.6 10x3/uL (4.8-10.8)
--- NOTE | 2019-06-02 19:23 | NUR ---
RECIEVED UP IN BED WITH EYES OPEN AND TV ON. ALERT AND ORIENTED X4. UP AD BYRON. LEFT FA WITH D51/2NS AT 75CC/HR. TELEMETRRY IN PLACE. EDUCATED ON NPO STATUS AFTER MN. DENIES ANY NEED AT THIS TIME.
[2019-06-03 04:00] VITALS: BP 114/68
[2019-06-03 05:40] LABS: BASOPHILS 0.2 % (0-2); HEMATOCRIT 44.5 % (42.0-54.0); HEMOGLOBIN 14.9 g/dL (13.5-17.5); IMMATURE GRANULOCYTES 0.4 % (0-5); MCH 30.7 pg (26.0-34.0); MCHC 33.5 g/dL (31.0-37.0); MCV 91.8 fL (80.0-100.0); MEAN PLATELET VOLUME 9.9 fL (7.4-10.4); MONOCYTES 5.9 % (2-11); NEUTROPHILS 65.5 % (40-80); PLATELET COUNT 148 10x3/uL (130-400); RBC 4.85 10x6/uL (4.20-6.10); WBC 5.6 10x3/uL (4.8-10.8)
[2019-06-03 05:46] LABS: ANION GAP 13.9 mmol/L (8-16); CALCIUM 8.6 mg/dL (8.5-10.1); CARBON DIOXIDE 28.5 mmol/L (21.0-32.0); CREATININE - SERUM 1.4 mg/dL (0.6-1.3); MAGNESIUM - SERUM 1.8 mg/dL (1.8-2.4); PHOSPHOROUS 3.4 mg/dL (2.5-4.9); POTASSIUM - SERUM 4.4 mmol/L (3.5-5.1)
--- NOTE | 2019-06-03 07:37 | HP ---
PATIENT: AKIL HYDE MEDICAL RECORD: [id number] ACCOUNT: [id number] LOCATION:[address] : 41 ADMISSION DATE: 06/02/19 PCP: AMIRAH MARTELL MD HISTORY AND PHYSICAL EXAMINATION REASON FOR ADMISSION: Chest pain with exertion and rest. HISTORY OF PRESENT ILLNESS: The patient is a 74-year-old male with history of known CAD and 5 prior PTCA and 1 WI. He states that he off and on for the last week noticed some exertional chest discomfort and diaphoresis. He mowed the yard yesterday and had a 2 hour extended period of symptoms. He did not tell his . He is a retired nurse. Last night, he was awakened about 2.30 with substernal chest pain and diaphoresis. It lasted about 2 hours. He again did not notify his . She told this morning, she that he looked like he did not feel well. He admitted to his symptoms and she recommended he come to the ED. He had EMS arrived at his home. He had 2 nitro sprays en route relieving his symptoms but causing him to have a headache, which has resolved. His states he had back surgery in 2016, was off of his Plavix for a short period of time and had an WI post-procedure that is when he was living in [place]. PAST MEDICAL HISTORY: Known coronary artery disease with mild cardiomyopathy, hyperlipidemia, and hypertension. He has had angioplasty times 4 days. History of drug-eluting stents, last was in June 2018. Remote WI. He had infected left ureteral calculus with stone basket by Dr. Spencer , osteoarthritis. He has presbycusis and wears hearing aids. PAST SURGICAL HISTORY: He had left total knee. He has had left rotator cuff repair in his shoulder and two lumbar fusions. ALLERGIES: None known. FAMILY HISTORY: Father had heart disease, of coronary artery disease in his 70s. No premature heart disease in his family otherwise in siblings or mother. HOME MEDICATIONS: Coreg 3.125 mg p.o. b.i.d., nitroglycerin lingual 0.4 p.r.n. chest pain current is out of date, pravastatin 20 mg at h.s., aspirin 81 mg a day, diclofenac sodium 75 mg p.o. b.i.d. p.c., potassium 595 mg p.o. daily, Nexium 20 mg p.o. daily, levothyroxine 0.112 mcg p.o. q.a.m. SOCIAL HISTORY: Nonsmoker, rare drinker lifelong, semi-retired and to a retired nurse. states they have just sold their home and currently are planing on moving to [place] near family. REVIEW OF SYSTEMS: GENERAL: Fatigue for the last several weeks. HEENT: No recent visual change, sinus congestion, or sore throat. He has chronic trouble hearing with hearing aids improve his hearing. RESPIRATORY: He has mild shortness of breath with episodes of chest discomfort, but not normally. He has no cough, sputum production. CARDIAC: Exertional and rest chest pain as mentioned above for the last week. Prior history of WI. Prior history of hypertension and hyperlipidemia. No history of peripheral vascular disease or claudication. GASTROINTESTINAL: No nausea, vomiting, change in stools or blood per rectum. HISTORY AND PHYSICAL [id number] AKIL HYDE Does have reflux controlled with Nexium. MUSCULOSKELETAL: Has chronic arthralgias, left knee, shoulder and lumbar spine, no sciatica. INTEGUMENT: No rash or itching. PSYCHIATRIC: Denies depressed mood. GENITOURINARY: Nocturia once nightly. PHYSICAL EXAMINATION: VITAL SIGNS: His temperature is 98.2, pulse 61 and regular, respirations are 16, blood pressure is 131/77 with O2 sat of 98% on room air. GENERAL: The patient is alert and oriented, in no acute distress. HEENT: Eyes, clear. Oropharynx unremarkable. NECK: Supple, without bruits or masses. CHEST: Clear without wheeze or rales. HEART: Regular rate without MGR. PMI appropriate. ABDOMEN: Soft, nontender. No organomegaly or bruits. PELVIC: Deferred. EXTREMITIES: No CC and E. He has healed scars left anterior humeral head, left knee, and lower lumbar spine. LABORATORY DATA: His white count 4700 with normal diff, H and H is 15 and 43.7 respectively. Chemistry: BUN and creatinine are 25 and 1.5 respectively. Magnesium 1.6. CPK is 524 elevated with an MB fraction of 7.8. Initial troponin is normal at 0.035. INR is 1.05. Chest x-ray shows no acute cardiopulmonary disease except for coronary stents in place. EKG shows sinus rhythm, nonspecific ST-T wave changes. ASSESSMENT: 1. Exertional and rest angina with known history of multiple PTCA stents to LAD. 2. Remote myocardial infarction. 3. Hypomagnesemia. 4. Hypertension. 5. Hyperlipidemia. 6. History of renal stones. 7. Hypothyroidism. 8. Gastroesophageal reflux disease. PLAN: The patient will be admitted to the cardiac floor for serial enzymes. Dr. Iniguez has been consulted from cardiology. We will place Imdur patch for nitroglycerin benefits. Further workup pending clinical course. The patient made to consider discontinuing anti-inflammatories due to his cardiac risk. TRANSINT:[id number] Voice Confirmation ID: [id number] DOCUMENT ID: [id number] HISTORY AND PHYSICAL [id number] AKIL HYDE TIMOTHY MD at 0737 CC: [id number] DICTATION DATE: 06/02/19 1216 ADMINISTRATIVE PROJECT COORDINATOR: 06/02/19 2110 ADM IN [place] [id number] [place] [address]
--- NOTE | 2019-06-03 07:48 | NUR ---
ALERT AND ORIENTED.TELEMERTY SHOWS SR 68. LEFT FA IV PATENT. NPO FOR CATH DENIES ANY NEEDS. NPO FOR CATH . WILL MONITOR
[2019-06-03 09:00] VITALS: BP 124/75
--- NOTE | 2019-06-03 11:28 | NUR ---
BACK FROM OUTREACH PROFESSIONAL. SEDATED BUT AWAKENS EASILY. RIGHT ARM TR BAND/ZEPHYN BAND INTACT, NO BLEEDING NOTED. FINGERS WARM. TELEMERTY SHOWS SR 74. SR UP WITH CALL LIGHT IN REACH
[2019-06-03 11:46] VITALS: BP 101/68
--- NOTE | 2019-06-03 12:03 | NUR ---
I have reviewed this patient and I concur with the Shift Assessment completed by the Licensed Practical Nurse today this shift.
[2019-06-03 16:16] VITALS: BP 117/74
--- NOTE | 2019-06-03 18:02 | NUR ---
PT DISCHARGED. IV DCD. TR OFF AND SITE CLEAN AND DRY. TO PRIVATE CAR PER WHEEL CHAIR
--- NOTE | 2019-06-04 10:02 | MORECARE ---
CASE MANAGEMENT DISCHARGE SUMMARY PATIENT: AKIL HYDE UNIT: [id number] ADM DATE: 06/02/19 AGE: 74 : 41 SEX: M ROOM/BED: D.2122 AUTHOR: HUMBERTO SANCHEZ PHYSICIAN: REFERRING PHYSICIAN: EUGENE JEONG MD DATE OF SERVICE: 06/04/19 Discharge Plan Patient Name: AKIL HYDE [facility] [facility] 1945 Planned Disposition: Home Anticipated Discharge Date: 06/03/19 Discharge Date: 06/03/2019 Expected LOS: 1 Initial Reviewer: [id number] Initial Review Date: 06/04/2019 Generated: 06/04/19 11:02 am Coverage Notice Reviewer: [id number] Teofilo Parra Notice Issued Date-Time: 06/02/2019 16:05 Notice Type: Medicare Outpatient Observation Notice Notice Delivered To: Patient Relationship to Patient: Limnology Teacher Name: Delivery Method: HAND - Hand Delivered Emily Days: Prior Verbal Notification: Recipient Understood Notice: Recipient Signature: Med Rec Note Co-signed by Attending: Coverage Notice Comment: Patient Name: AKIL HYDE Page [phone] at 1002 All edits/amendments must be made on the electronic document DICTATION DATE: 06/04/19 1001 INSPECTOR MULTIFOCAL LENS: VIOLETTE 06/04/19 1001 RPT#: [id number] DC DATE:06/03/19 STATUS: DIS IN [facility] [address] [place] [address] END OF REPORT
== END 2019-06-03 18:05 | disposition home or self-care (01) ==
LOC: D.ER 08:41 → D.M2 10:39 → OBSVTIME 10:39 → D.M2 10:39
PROVIDERS: Family Medicine; Internal Medicine Cardiovascular Disease; ADMIT Family Medicine; ATTEND Family Medicine
DX: I25.110 Atherosclerotic heart disease of native coronary artery with unstable angina pectoris (principal); G47.33 Obstructive sleep apnea (adult) (pediatric); I42.9 Cardiomyopathy, unspecified; I10 Essential (primary) hypertension; E78.5 Hyperlipidemia, unspecified